=== PATIENT | female | born 1940 | race Caucasian/White ===

== ENCOUNTER 2018-03-26 07:38 | Emergency (ER) | payer MEDICARE ==
[~2018-03-26] VITALS: Ht 162.6 cm; Wt 63.5 kg
--- NOTE | 2018-03-26 07:38 | NUR ---
PT [id number] FROM HOME, PT WOKE UP WITH A SEVERE RT KNEE PAIN-NO TRAUMA. PT WAS GIVEN 8MG OF MORPHINE AND 4MG OF ZOFRAN W/ SOME RELIEF. PT HAS A H/O RT KNEE REPLACEMENT. NAD VSS RR EVEN AND UNLABORED. PENDING ER MD EVALUATION
[2018-03-26] MEDS ORDERED: IV NS 0.9% 1,000 ML BAG IV ONE (08:00)
[2018-03-26] MEDS ORDERED: KETOROLAC TROMETHAMINE INJ 30 MG/ML VIAL IV ONE (08:00)
[2018-03-26] MEDS ORDERED: KETOROLAC TROMETHAMINE 15 MG/ML VIAL ONE (08:02)
[2018-03-26 08:18] LABS: BASOPHILS # (AUTO) 0.1 /CMM (0.0-0.2); BASOPHILS % (AUTO) 0.7 % (0.0-2.0); EOSINOPHILS % (AUTO) 1.5 % (0.0-6.0); HEMATOCRIT 34 % (33-45); HEMOGLOBIN 11.6 g/dL (11.5-14.8); LYMPHOCYTES # (AUTO) 0.8 /CMM (0.8-4.8); LYMPHOCYTES % (AUTO) 8.9 % (20.0-44.0); MEAN CORPUSCULAR HGB CONC 34 g/dl (31.0-36.0); MEAN CORPUSCULAR VOLUME 89 fL (82-100); MONOCYTES # (AUTO) 0.8 /CMM (0.1-1.30); MONOCYTES % (AUTO) 8.9 % (2.0-12.0); PLATELET COUNT (AUTO) 234 /CMM (150-450); RDW COEFFICIENT OF VARIATION 14.5 (11.5-15.0); RED BLOOD CELL COUNT(AUTO) 3.83 MIL/uL (4.0-5.2); WHITE BLOOD COUNT (AUTO) 8.8 K/uL (4.3-11.0)
--- NOTE | 2018-03-26 08:30 | NUR ---
Patient is resting comfortably in bed with eyes closed. Easily aroused.
[2018-03-26 08:38] LABS: CALCIUM, SERUM 9.3 mg/dL (8.5-10.1); CARBON DIOXIDE 26 mmol/L (21-32); CHLORIDE 102 mmol/L (98-107); CREATININE 0.9 mg/dL (0.6-1.3); GLUCOSE 100 mg/dL (74-106); POTASSIUM 3.2 mmol/L (3.5-5.1); SODIUM SERUM 139 mmol/L (136-145); UREA NITROGEN, BLOOD 20 mg/dL (7-18)
[2018-03-26 09:32] LABS: APPEARANCE,URINE Clear (CLEAR); BILIRUBIN,URINE Negative (NEGATIVE); BLOOD, URINE Negative Ery/uL (NEGATIVE); COLOR,URINE Yellow (YELLOW); KETONES,URINE Negative (NEGATIVE); LEUKOCYTE ESTERASE ,URINE Negative (NEGATIVE); NITRITE, URINE Negative (NEGATIVE); PH,URINE 7.5 (5.0-8.0); PROTEIN,URINE Negative (NEGATIVE); UGLUCOSE Negative (NEGATIVE); UROBILINOGEN,URINE 0.2 EU/dL (0.2)
--- NOTE | 2018-03-26 09:58 | NUR ---
IV removed. Catheter intact and site benign. Pressure and 4x4 applied to site. No bleeding noted.
[2018-03-26 10:00] VITALS: BP 156/89
--- NOTE | 2018-03-26 10:00 | NUR ---
Patient discharged to home in stable condition. Written and verbal after care instructions given. Patient verbalizes understanding of instruction.
== END 2018-03-26 10:55 | disposition home or self-care (01) ==
LOC: ER 07:42
DX: E86.0 Dehydration (principal); M25.461 Effusion, right knee; M17.11 Unilateral primary osteoarthritis, right knee; I10 Essential (primary) hypertension; I48.91 Unspecified atrial fibrillation; F41.9 Anxiety disorder, unspecified; F32.9 Major depressive disorder, single episode, unspecified; Z96.651 Presence of right artificial knee joint; Z88.6 Allergy status to analgesic agent; Z88.8 Allergy status to other drugs, medicaments and biological substances
CPT/HCPCS: 36415; 73560-TC; 80048-TC; 81000-TC; 85025-TC; A4606; J1885; J7030; Z7610

== ENCOUNTER 2018-07-13 13:47 | Inpatient (IN) | payer MEDICARE ==
[~2018-07-13] VITALS: Ht 165.1 cm; Wt 55.8 kg
--- NOTE | 2018-07-13 14:00 | NUR ---
pt able to get out of bed with assistance-BRP. Await MD evaluation. Family at bedside
[2018-07-13 14:54] LABS: CALCIUM, SERUM 9.3 mg/dL (8.5-10.1); CARBON DIOXIDE 28 mmol/L (21-32); CHLORIDE 100 mmol/L (98-107); CREATININE 1.1 mg/dL (0.6-1.3); GLUCOSE 97 mg/dL (74-106); POTASSIUM 3.2 mmol/L (3.5-5.1); SODIUM SERUM 138 mmol/L (136-145); UREA NITROGEN, BLOOD 13 mg/dL (7-18)
[2018-07-13 14:58] LABS: BASOPHILS % (AUTO) 0.9 % (0.0-2.0); HEMATOCRIT 29 % (33-45); HEMOGLOBIN 9.7 g/dL (11.5-14.8); LYMPHOCYTES # (AUTO) 0.7 /CMM (0.8-4.8); LYMPHOCYTES % (AUTO) 13.6 % (20.0-44.0); MEAN CORPUSCULAR HGB CONC 34 g/dl (31.0-36.0); MEAN CORPUSCULAR VOLUME 91 fL (82-100); MONOCYTES # (AUTO) 0.6 /CMM (0.1-1.30); MONOCYTES % (AUTO) 10.6 % (2.0-12.0); NEUTROPHILS # (AUTO) 4.1 /CMM (1.8-8.9); NEUTROPHILS % (AUTO) 73.9 % (43.0-81.0); PLATELET COUNT (AUTO) 394 /CMM (150-450); RDW COEFFICIENT OF VARIATION 13.8 (11.5-15.0); RED BLOOD CELL COUNT(AUTO) 3.21 MIL/uL (4.0-5.2); WHITE BLOOD COUNT (AUTO) 5.5 K/uL (4.3-11.0)
[2018-07-13] MEDS ORDERED: IV NS 0.9% 500 ML BAG IV ONE (15:00)
[2018-07-13 15:02] LABS: TROPONIN I < 0.017 ng/mL (0.00-0.056)
[2018-07-13 15:07] LABS: ALANINE AMINOTRANSFERASE 17 U/L (12-78); ALBUMIN 3.3 g/dL (3.4-5.0); ALKALINE PHOSPHATASE 95 U/L (46-116); ASPARTATE AMINOTRANSFERASE 21 U/L (15-37); B-TYPE NATRIURETIC PEPTIDE 1288 PG/ML (0-125); BILIRUBIN,DIRECT 0.1 mg/dL (0.0-0.2); BILIRUBIN,TOTAL 0.4 mg/dL (0.2-1.0); TOTAL PROTEIN, SERUM 7.3 g/dL (6.4-8.2)
[2018-07-13 15:17] LABS: INR 3.64 (0.85-1.15)
[2018-07-13] MEDS ORDERED: IOHEXOL-350 100 ML VIAL IV ONE (15:30)
[2018-07-13] MEDS ORDERED: CT SWABBABLE VALVE TRANS SET 1 EA INFUS.SET MC ONE (15:30)
[2018-07-13] MEDS ORDERED: IV NS 0.9% 250 ML IV ONE (15:30)
[2018-07-13] MEDS ORDERED: TRAM50TA2 PO (15:50)
[2018-07-13] MEDS ORDERED: CLON0.5T12 PO (15:50)
[2018-07-13] MEDS ORDERED: FLUO10CA26 PO (15:50)
[2018-07-13] MEDS ORDERED: FAMO-131 PO (15:50)
[2018-07-13] MEDS ORDERED: OXYC5CAP18 PO (15:50)
[2018-07-13] MEDS ORDERED: NEBI5TAB8 PO (15:50)
--- NOTE | 2018-07-13 16:05 | NUR ---
Updated with plan of care. Await admission family at bedside
[2018-07-13 16:57] LABS: APPEARANCE,URINE Clear (CLEAR); BILIRUBIN,URINE Negative (NEGATIVE); BLOOD, URINE Negative Ery/uL (NEGATIVE); COLOR,URINE Yellow (YELLOW); KETONES,URINE Negative (NEGATIVE); LEUKOCYTE ESTERASE ,URINE Negative (NEGATIVE); NITRITE, URINE Negative (NEGATIVE); PH,URINE 7.5 (5.0-8.0); PROTEIN,URINE Negative (NEGATIVE); UGLUCOSE Negative (NEGATIVE); UROBILINOGEN,URINE 0.2 EU/dL (0.2)
[2018-07-13] MEDS ORDERED: POTASSIUM CHLORIDE 20 MEQ TAB.PRT.SR PO ONE ×2 (17:30→17:42)
[2018-07-13] MEDS ORDERED: IV NS 0.9% 1,000 ML IV PRN (17:56)
--- NOTE | 2018-07-13 17:59 | NUR ---
transported to floor in stable condition Nurse Knowledge Exchange w/[facility]
[2018-07-13] MEDS ORDERED: clonazePAM 0.5 MG TABLET PO SCH (18:00)
[2018-07-13] MEDS ORDERED: ACETAMINOPHEN 325 MG TABLET PO PRN (18:00)
[2018-07-13] MEDS ORDERED: MAG HYDROX/AL HYDROX/SIMETH 30 ML UDC PO PRN (18:00)
[2018-07-13] MEDS ORDERED: MAGNESIUM HYDROXIDE 30 ML UDC PO PRN (18:00)
[2018-07-13] MEDS ORDERED: TRAMADOL HCL 50 MG TABLET PO PRN (18:00)
[2018-07-13] MEDS ORDERED: ONDANSETRON HCL/PF 4 MG/2 ML VIAL IVP PRN (18:00)
[2018-07-13] MEDS ORDERED: oxyCODONE IR immediate release 5 MG PO PRN (18:00)
[2018-07-13] MEDS ORDERED: ZOLPIDEM TARTRATE 5 MG TABLET PO PRN (18:00)
[2018-07-13] MEDS ORDERED: Z GUARD REMEDY 2 OZ OINT TP PRN (18:00)
[2018-07-13] MEDS ORDERED: HYDROCODONE/APAP 5/325MG 1 EACH TABLET PO PRN (18:00)
[2018-07-13 18:30] VITALS: BP 136/70
--- NOTE | 2018-07-13 19:20 | NUR ---
AIR TRAFFIC CONTROL OPERATOR OPENING NOTES: RECEIVED PT ON ROOM AIR AND IS TOLERATING WELL WITH 2 FAMILY MEMBERS AT BEDSIDE. PT HAS IV ON R FOREARM #20G AND IS PATENT AND INTACT. PT IS TO BE STARTED ON IV NS AT 75ML/HR. PT ON TELE BOX AND READING SHOWS SR 96. NO S/S OF DISTRESS NOTED. NO SOB NOTED. 02 SUPPLEMENT AT BEDSIDE. CALL LIGHT WITHIN PT'S REACH. BED KEPT IN LOW, LOCKED POSITION, AND SIDE RAILS X 2UP. WILL CONTINUE TO MONITOR PT.
[2018-07-13 20:00] VITALS: BP 137/82
--- NOTE | 2018-07-13 22:10 | NUR ---
GREASE MAKER HEAD NOTES: SPOKE WITH NITESH Carter AND INFORMED HER OF BNP [id number]. MADE CLARK. ALSO INFORMED HER THAT PT WANTS TO BE DNR/DNI. PER NITESH Carter, ENDORSE IT TO DR. RAMOS. Addendum: 07/13/18 at 2241 by ANA COOK RN ALSO INFORMED HER THAT PT IS UNABLE TO BRING HER BYSTOLIC 5MG PO; PER NITESH Carter , PT'S BP IS OK. TRY TO SEE WITH MD LATER FOR WHAT IT CAN BE CONVERTED TO.
--- NOTE | 2018-07-13 22:25 | NUR ---
ACADEMIC SERVICES COORDINATOR NOTES: PT APPEARS TO BE ANXIOUS AND STATES THAT SHE NORMALLY TAKES HER KLONOPIN 0.1 MG PO IN THE EVENING. PT WAS ADMINISTERED HER KLONOPIN 0.5MG PO. WILL CONTINUE TO MONITOR PT.
[2018-07-14] VITALS: BP 155/93
[2018-07-14 04:00] VITALS: BP 151/85
--- NOTE | 2018-07-14 06:16 | NUR ---
PEOPLESOFT FUNCTIONAL ANALYST CLOSING NOTES: ALL NEEDS WERE ATTENDED AND ANTICIPATED FOR. PT KEPT CLEAN, DRY, AND COMFORTABLE. PT ON ROOM AIR AND IS ASLEEP AT THIS TIME. PT HAS O2 SUPP AT BEDSIDE PRN. PT HAS IV AND IS BEING INFUSED WITH IV NS AT 75ML/HR. CALL LIGHT WITHIN PT'S REACH. BED KEPT IN LOW, LOCKED POSITION, AND SIDE RAILS X 2UP. PT ON TELE BOX AND READING SHOWS SR 83 WITH OCCASIONAL PACS. WILL ENDORSE TO AM NURSE FOR ADAMS.
[2018-07-14 06:31] LABS: BASOPHILS % (AUTO) 0.8 % (0.0-2.0); EOSINOPHILS % (AUTO) 3.6 % (0.0-6.0); HEMATOCRIT 28 % (33-45); HEMOGLOBIN 8.9 g/dL (11.5-14.8); LYMPHOCYTES # (AUTO) 1.1 /CMM (0.8-4.8); LYMPHOCYTES % (AUTO) 25.9 % (20.0-44.0); MEAN CORPUSCULAR HGB CONC 32 g/dl (31.0-36.0); MEAN CORPUSCULAR VOLUME 94 fL (82-100); MONOCYTES # (AUTO) 0.6 /CMM (0.1-1.30); MONOCYTES % (AUTO) 14.1 % (2.0-12.0); NEUTROPHILS # (AUTO) 2.4 /CMM (1.8-8.9); NEUTROPHILS % (AUTO) 55.6 % (43.0-81.0); PLATELET COUNT (AUTO) 343 /CMM (150-450); RDW COEFFICIENT OF VARIATION 14.6 (11.5-15.0); RED BLOOD CELL COUNT(AUTO) 2.96 MIL/uL (4.0-5.2); WHITE BLOOD COUNT (AUTO) 4.4 K/uL (4.3-11.0)
--- NOTE | 2018-07-14 07:15 | NUR ---
BELT SEWER OPENING NOTE RECEIVED PATIENT IN BED. SLEEPING, EASILY AROUSED WITH VERBAL STIMULI. ORIENTED X3. ON ROOM AIR TOLERATING WELL. IN NO APPARENT DISTRESS OR DISCOMFORT AT THIS TIME. RESPIRATIONS EVEN AND UNLABORED. DENIES PAIN AND SOB. ABLE TO COMMUNICATE NEEDS. PATIENT ON TELE MONITORING WITH SINUS RHYTHM. CONTINENT WITH USE OF BEDSIDE COMMODE WITH ASSIST. RIGHT FOREARM 20G IVC WITH FLUIDS RUNNING AT 75ML/HR, PATENT AND INTACT. PATIENT KEPT CLEAN AND COMFORTABLE. ALL NEEDS ATTENDED. BED IN LOW LOCKED POSITION, SIDE RAILS UP X2, CALL LIGHT WITHIN EASY REACH. WILL CONTINUE TO MONITOR.
[2018-07-14 07:25] LABS: ALANINE AMINOTRANSFERASE 13 U/L (12-78); ALBUMIN 2.8 g/dL (3.4-5.0); ALKALINE PHOSPHATASE 83 U/L (46-116); ASPARTATE AMINOTRANSFERASE 18 U/L (15-37); BILIRUBIN,TOTAL 0.3 mg/dL (0.2-1.0); CALCIUM, SERUM 8.4 mg/dL (8.5-10.1); CARBON DIOXIDE 25 mmol/L (21-32); CHLORIDE 105 mmol/L (98-107); CREATININE 1.1 mg/dL (0.6-1.3); GLUCOSE 117 mg/dL (74-106); MAGNESIUM 1.7 mg/dL (1.8-2.4); PHOSPHORUS 2.5 mg/dL (2.5-4.9); POTASSIUM 3.3 mmol/L (3.5-5.1); SODIUM SERUM 140 mmol/L (136-145); TOTAL PROTEIN, SERUM 6.4 g/dL (6.4-8.2); UREA NITROGEN, BLOOD 11 mg/dL (7-18)
[2018-07-14 07:38] LABS: INR 2.87 (0.87-1.13)
[2018-07-14 07:43] LABS: CHOLESTEROL 99 mg/dL (<200); HDL CHOLESTEROL 46 mg/dL (40-60); LDL 48 mg/dL (0-99); THYROID STIMULATING HORMONE 1.381 uIU/mL (0.358-3.74); TRIGLYCERIDES 71 mg/dL (30-150)
[2018-07-14 08:00] VITALS: BP 155/99
--- NOTE | 2018-07-14 09:00 | NUR ---
CALLED [facility] [employer] TO OBTAIN DVT PUMP. NO ANSWER. WILL REATTEMPT/
[2018-07-14] MEDS ORDERED: POTASSIUM CHLORIDE 20 MEQ TAB.PRT.SR PO ONE (09:30)
[2018-07-14] MEDS: FAMOTIDINE (20 MG) 20 MG TABLET PO SCH (09:39)
[2018-07-14] MEDS: Fluoxetine 10 mg capsule PO SCH (09:40)
[2018-07-14] MEDS: CARVEDILOL 6.25 MG TABLET PO SCH ×2 (09:40→21:14)
[2018-07-14] MEDS: Magnesium 1GM/D5W 100ML PREMIX 100 ML IV SCH ×2 (09:44→11:26)
[2018-07-14 12:20] LABS: OCCULT BLOOD STOOL NEGATIVE (NEGATIVE)
--- NOTE | 2018-07-14 12:40 | NUR ---
CALLED [employer] [employer] FOR DVT PUMP. NO ANSWER TO THE PHONE. WILL REATTEMPT.
--- NOTE | 2018-07-14 15:00 | NUR ---
WAS ABLE TO GET A HOLD OF [employer] SUPPL[employer]. ORDERED DVT PUMP FOR THE PATIENT. WILL APPLY SOON IT IS AVAILABLE.
[2018-07-14 16:00] VITALS: BP 159/90
[2018-07-14] MEDS: WARFARIN SODIUM 2 MG TABLET PO SCH (17:05)
--- NOTE | 2018-07-14 19:04 | NUR ---
MS YUKO OPENING NOTE PATIENT IN BED. ALERT ORIENTED X3. ON ROOM AIR TOLERATING WELL. IN NO APPARENT DISTRESS OR DISCOMFORT AT THIS TIME. RESPIRATIONS EVEN AND UNLABORED. DENIES PAIN AND SOB. ABLE TO COMMUNICATE NEEDS. CONTINENT WITH USE OF BEDSIDE COMMODE WITH ASSIST. RIGHT FOREARM 20G IVC SL, PATENT AND INTACT. PATIENT KEPT CLEAN AND COMFORTABLE. ALL NEEDS ATTENDED, ORDERS RENDERED. BED IN LOW LOCKED POSITION, SIDE RAILS UP X2, CALL LIGHT WITHIN EASY REACH. WILL ENDORSE TO PM NURSE FOR ADAMS. Addendum: 07/15/18 at 0737 by JOSE NGO RN MS [facility] CLOSING NOTE
--- NOTE | 2018-07-14 19:30 | NUR ---
RN NOTES RECEIVED PT. AWAKE ON BED, A/OX4, PLEASANT LADY DENIES PAIN, NO SOB, CALL LIGHT WITHIN REACH, [id number], CONTINUE TO MONITOR
[2018-07-14 20:00] VITALS: BP 145/89
--- NOTE | 2018-07-14 21:00 | NUR ---
RN NOTES CHECKED PT. INCISION ON HER RIGHT KNEE, AND ASKED IF WE CAN TAKE PICTURE. "PT STATED THAT THEY JUST TOOK PICTURE YESTERDAY AND NOTHING CHANGE".
[2018-07-14] MEDS: clonazePAM 0.5 MG TABLET PO PRN (21:23)
--- NOTE | 2018-07-14 21:25 | NUR ---
RN NOTES PT ASKED FOR HER KLONOPIN, KLONOPIN 0.5MG PO GIVEN ORDERED, V/S STABLE
--- NOTE | 2018-07-15 06:42 | NUR ---
RN NOTES SLEEPING BUT AROUSABLE, DENIES PAIN, NO SOB, MORNING CARE RENDERED, CALL LIGHT WITHIN REACH, [id number], PT. NEEDS ATTENDED
--- NOTE | 2018-07-15 07:38 | NUR ---
MS RN OPENING NOTE RECEIVED PATIENT IN BED. SLEEPING, EASILY AROUSED WITH VERBAL STIMULI. ORIENTED X3. ON ROOM AIR TOLERATING WELL. IN NO APPARENT DISTRESS OR DISCOMFORT AT THIS TIME. RESPIRATIONS EVEN AND UNLABORED. DENIES PAIN AND SOB. ABLE TO COMMUNICATE NEEDS. CONTINENT WITH USE OF BEDSIDE COMMODE WITH ASSIST. RIGHT FOREARM 20G IVC SL, PATENT AND INTACT. PATIENT KEPT CLEAN AND COMFORTABLE. ALL NEEDS ATTENDED. BED IN LOW LOCKED POSITION, SIDE RAILS UP X2, CALL LIGHT WITHIN EASY REACH. WILL CONTINUE TO MONITOR.
[2018-07-15 08:00] VITALS: BP 153/91
[2018-07-15] MEDS: CARVEDILOL 6.25 MG TABLET PO SCH ×2 (08:18→21:22)
[2018-07-15] MEDS: FAMOTIDINE (20 MG) 20 MG TABLET PO SCH (08:18)
[2018-07-15] MEDS: Fluoxetine 10 mg capsule PO SCH (08:18)
[2018-07-15 08:26] VITALS: BP 153/91
[2018-07-15 10:23] LABS: BASOPHILS % (AUTO) 0.8 % (0.0-2.0); EOSINOPHILS % (AUTO) 3.4 % (0.0-6.0); HEMATOCRIT 30 % (33-45); HEMOGLOBIN 9.8 g/dL (11.5-14.8); LYMPHOCYTES # (AUTO) 0.7 /CMM (0.8-4.8); LYMPHOCYTES % (AUTO) 16.3 % (20.0-44.0); MEAN CORPUSCULAR HGB CONC 32 g/dl (31.0-36.0); MEAN CORPUSCULAR VOLUME 94 fL (82-100); MONOCYTES # (AUTO) 0.5 /CMM (0.1-1.30); NEUTROPHILS % (AUTO) 68.5 % (43.0-81.0); PLATELET COUNT (AUTO) 378 /CMM (150-450); RDW COEFFICIENT OF VARIATION 14.9 (11.5-15.0); RED BLOOD CELL COUNT(AUTO) 3.21 MIL/uL (4.0-5.2); WHITE BLOOD COUNT (AUTO) 4.4 K/uL (4.3-11.0)
[2018-07-15 10:40] LABS: IRON, SERUM 52 ug/dl (50-175); TOTAL IRON BINDING CAPACITY 249 ug/dl (250-450)
[2018-07-15] MEDS: SOD FERRIC GLUC 125 MG in IV NS 0.9% 100 ML IV SCH (13:55)
[2018-07-15 14:32] LABS: INR 2.48 (0.87-1.13)
[2018-07-15 16:10] VITALS: BP 166/79
[2018-07-15] MEDS: WARFARIN SODIUM 2 MG TABLET PO SCH (18:04)
--- NOTE | 2018-07-15 19:41 | NUR ---
MS RN CLOSING NOTE PATIENT IN BED. ALERT ORIENTED X3. ON ROOM AIR TOLERATING WELL. IN NO APPARENT DISTRESS OR DISCOMFORT AT THIS TIME. RESPIRATIONS EVEN AND UNLABORED. DENIES PAIN AND SOB. ABLE TO COMMUNICATE NEEDS. CONTINENT WITH USE OF BEDSIDE COMMODE AND BRP. RIGHT FOREARM 20G IVC SL, PATENT AND INTACT. PATIENT KEPT CLEAN AND COMFORTABLE. ALL NEEDS ATTENDED, ORDERS RENDERED. BED IN LOW LOCKED POSITION, SIDE RAILS UP X2, CALL LIGHT WITHIN EASY REACH. WILL ENDORSE TO PM NURSE FOR ADAMS.
--- NOTE | 2018-07-15 19:55 | NUR ---
RN OPENING NOTES RECEIVED REPORT FROM DAYSHIFT RN OPAL. FOUND Pt AWAKE, RESTING IN BED. NO S/S OF ACUTE DISTRESS OR SOB NOTED. IV ACCESS ON RFA #20G, SL. Pt IS A/OX4, VERBAL, ABLE TO MAKE NEEDS KNOWN. SAFETY MEASURES IN PLACE. BED LOW, LOCKED, HOB ELEVATED, SIDE RAILS UP, CALL LIGHT AND BEDSIDE TABLE WITHIN REACH. WILL CONTINUE TO MONITOR Pt THROUGHOUT THE NIGHT FOR SAFETY.
[2018-07-15 20:00] VITALS: BP 160/82
[2018-07-15 20:07] VITALS: BP 160/82
[2018-07-15] MEDS: clonazePAM 0.5 MG TABLET PO PRN (22:43)
--- NOTE | 2018-07-15 22:47 | NUR ---
RN NOTES ADMINISTERED KLONOPIN 0.5MG PER Pt's REQUEST AND PER MD ORDER.
--- NOTE | 2018-07-16 06:15 | NUR ---
RN CLOSING NOTES NO SIGNIFICANT CHANGES IN Pt's CONDITION. NO S/S OF ACUTE DISTRESS OR SOB NOTED DURING THE NIGHT. RESPIRATIONS EVEN AND UNLABORED. ALL NEEDS MET AND ATTENDED TO. SAFETY MEASURES IN PLACE. BED LOW, LOCKED, HOB ELEVATED, SIDE RAILS UP, CALL LIGHT AND BEDSIDE TABLE WITHIN REACH. WILL ENDORSE TO DAYSHIFT RN FOR Pt's ADAMS.
[2018-07-16 08:38] VITALS: BP 147/90
[2018-07-16 08:41] LABS: INR 2.09 (0.87-1.13)
[2018-07-16] MEDS: CARVEDILOL 6.25 MG TABLET PO SCH (08:44)
[2018-07-16] MEDS: Fluoxetine 10 mg capsule PO SCH (08:44)
[2018-07-16] MEDS: FAMOTIDINE (20 MG) 20 MG TABLET PO SCH (08:44)
--- NOTE | 2018-07-16 11:09 | NUR ---
WOUND CARE CONSULT: PT INDEPENDENT WITH BED MOBILITY AND CONTINENT. PT HAS DRY SCAB ON INDEX FINGER AND FEW SCRATCHES ON HER BACK, PRESENT ON ADMISSION. RT KNEE INCISION HEALED. WILL SEE PRN.
--- NOTE | 2018-07-16 12:00 | NUR ---
xavier in and dc order given.
[2018-07-16] MEDS ORDERED: WARF2TAB57 PO (13:45)
[2018-07-16] MEDS ORDERED: ONCOUMADIN PO (13:45)
[2018-07-16] MEDS: SOD FERRIC GLUC 125 MG in IV NS 0.9% 100 ML IV SCH (14:07)
[2018-07-16 16:00] VITALS: BP 147/84
--- NOTE | 2018-07-16 16:12 | NUR ---
refused discharge photos.
[2018-07-16] MEDS: WARFARIN SODIUM 2 MG TABLET PO SCH ×2 (16:54→17:00)
--- NOTE | 2018-07-16 17:15 | NUR ---
hep lock out. dc instructions given to pt. and given reagan. coumadin.report called to facility,and spoke with shadi.d[facility].
== END 2018-07-16 17:29 | DRG 292 ==
LOC: ER 13:49 → TELE 17:31 → MED 07-14 08:57
PROVIDERS: ADMIT Internal Medicine; ATTEND Internal Medicine
DX: I11.0 Hypertensive heart disease with heart failure (principal); E44.1 Mild protein-calorie malnutrition; E86.0 Dehydration; I50.33 Acute on chronic diastolic (congestive) heart failure; E87.6 Hypokalemia; I48.0 Paroxysmal atrial fibrillation; K58.9 Irritable bowel syndrome, unspecified; E83.42 Hypomagnesemia; K21.9 Gastro-esophageal reflux disease without esophagitis; Z88.5 Allergy status to narcotic agent; Z88.8 Allergy status to other drugs, medicaments and biological substances; Z79.899 Other long term (current) drug therapy; D63.8 Anemia in other chronic diseases classified elsewhere; Z96.643 Presence of artificial hip joint, bilateral; Z96.651 Presence of right artificial knee joint; E78.5 Hyperlipidemia, unspecified
CPT/HCPCS: 36415; 71045-TC; 80048-TC; 80053-TC; 80061-TC; 80076-TC; 81000-TC; 82272-TC; 83540-TC; 83735-TC; 83880; 84100-TC; 84443-TC; 84484-TC; 85025-TC; 85610-TC; 85730-TC; 87081-TC; 93307-TC; A4606; J2916; J3475; J3490; J7030; J7050; Q9967; Z7610